=== PATIENT | male | born 1995 | race Caucasian/White ===

== ENCOUNTER → 2021-01-26 | Outpatient (CLI) | payer BC ==
[~2021-01-26] MED LIST: ISOVUE-370 76% 100ML VIAL ONE
== END ==
LOC: M PLAIMG 13:37
PROVIDERS: ATTEND Physician Assistant
DX: R59.0 Localized enlarged lymph nodes (principal); J32.3 Chronic sphenoidal sinusitis; J32.1 Chronic frontal sinusitis
CPT/HCPCS: 70487; 70491; Q9967

== ENCOUNTER → 2021-02-17 | Outpatient (REF) | payer BC | LOC: M LAB REF 16:20 | PROVIDERS: ATTEND Otolaryngology | DX: R22.1 Localized swelling, mass and lump, neck (principal) ==